=== PATIENT | female | born 1960 | race Caucasian/White ===

== ENCOUNTER 2024-01-24 11:54 | Inpatient (IN) | payer OTHER ==
[~2024-01-24] VITALS: Ht 160 cm; Wt 61.0 kg
[2024-01-24] MEDS ORDERED: Ondansetron 4 MG SoluTab SL ONE (12:15)
[2024-01-24 12:38] LABS: BASOPHILS ABSOLUTE AUTO 0.08 K/mm3 (0.00-0.23); BASOPHILS PERCENT AUTO 1 % (0-2); EOSINOPHILS ABSOLUTE AUTO 0.76 K/mm3 (0.00-0.68); EOSINOPHILS PERCENT AUTO 10 % (0-6); Hematocrit 42.1 % (33.0-51.0); Hemoglobin 13.5 g/dL (11.5-16.0); IMMATURE GRAN ABSOLUTE AUTO 0.03 K/mm3 (0.00-0.10); IMMATURE GRAN PERCENT AUTO 0 % (0-1); LYMPHOCYTES ABSOLUTE AUTO 1.64 K/mm3 (0.84-5.20); LYMPHOCYTES PERCENT AUTO 22 % (21-46); MONOCYTES ABSOLUTE AUTO 0.46 K/mm3 (0.16-1.47); MONOCYTES PERCENT AUTO 6 % (4-13); Mean Corpuscular HGB 29.2 pg (26.0-34.0); Mean Corpuscular HGB Conc 32.1 g/dL (31.5-36.5); Mean Corpuscular Volume 91 fL (80-100); Mean Platelet Volume 10.3 fL (9.1-12.4); NEUTROPHILS PERCENT AUTO 60 % (41-73); Platelet Count 222 K/mm3 (150-400); RDW Coefficient Variation 14.1 % (11.7-14.2); RDW Standard Deviation 47.1 fL (35.1-46.3); Red Blood Cell Count 4.62 M/mm3 (3.80-5.20); White Blood Cell Count 7.47 K/mm3 (4.00-11.30)
[2024-01-24 12:53] LABS: Albumin, Blood 3.3 g/dL (3.4-5.0); Albumin/Globulin Ratio 0.6 (0.8-1.8); Bilirubin, Total 0.7 mg/dL (0.1-1.0); Bun/Creatinine Ratio 25.4 (12.0-20.0); Calcium, Blood 9.4 mg/dL (8.5-10.1); Creatinine, Blood 0.98 mg/dL (0.40-1.00); Globulin, Blood 5.7 g/dL (2.2-4.0); Magnesium, Blood 1.6 mg/dL (1.6-2.4); Potassium, Blood 4.6 mmol/L (3.5-5.5)
[2024-01-24] MEDS ORDERED: FUROSEMIDE40 MG PO (12:54)
[2024-01-24] MEDS ORDERED: ANORO ELLIPTA1 EAC1 IH (12:55)
[2024-01-24] MEDS ORDERED: ALBU8HFA2 INH (12:55)
[2024-01-24] MEDS ORDERED: POTASSIUM99 M3 PO (12:55)
[2024-01-24] MEDS ORDERED: Pulmicort Fle180 MCG INH (12:56)
[2024-01-24] MEDS ORDERED: Aspirin 81 MG Chew PO ONE (13:00)
[2024-01-24 14:26] LABS: Anti-Xa UFH, PHA Monitoring <0.10 IU/mL; International Normalized Ratio 1.11; Prothrombin Time Results 11.8 Sec (9.7-11.5)
[2024-01-24] MEDS ORDERED: Dose Adjust by Pharmacy XX STA (14:28)
[2024-01-24] MEDS ORDERED: Heparin Sodium 5000 Units/ML 1ML MDV IV ONE (14:30)
[2024-01-24] MEDS ORDERED: Heparin Sodium,Porcine/0.5 NS 500 ML IV SCH (14:30)
[2024-01-24] MEDS ORDERED: FLU VACC TS2024-25(6MOS UP)/PF 45 MCG/0.5 ML SYRINGE IM SCH (15:00)
[2024-01-24] MEDS ORDERED: Atorvastatin 40 MG Tab PO SCH (16:00)
[2024-01-24] MEDS ORDERED: Lactated Ringer's 1,000 ML IV SCH (18:00)
[2024-01-24 18:01] VITALS: BP 108/57
--- NOTE | 2024-01-24 18:53 | NUR ---
NURSE NOTE PT ARRIVED FROM THE ED ON A GURNEY. PT WAS SLIDE OVER TO OUR BED WITH THE ASSISTANCE OF 4 STAFF MEMEBERS. PT A+O X4, ABLE TO ANSWER QUESTIONS AND MAKE NEEDS KNOWN. DURING MY ASSESMENT WAS ABLE TO DANGLE AT BEDSIDE, THEN WAS ASST. TO BSC W/ THE HELP OF TWO STAFF MEMBERS. PT ABLE TO VOID, AND HAVE BOWEL MOVEMENT. PT WAS PROVIDED WARM BLANKETS. PROMPTED ON HOW TO USE CALL LIGHT.
[2024-01-24 19:35] VITALS: BP 114/60
[2024-01-24] MEDS ORDERED: Albuterol HFA200 ACT/6.7 GM INH INH PRN (19:35)
[2024-01-24] MEDS ORDERED: Mometasone Furoate Inhaler 220 mcg 14 ACT INH SCH (19:50)
[2024-01-24] MEDS ORDERED: Ipratropium/Albuterol SulF 2.5-0.5MG/3 ML Amp INH SCH (19:50)
[2024-01-24] MEDS ORDERED: Gabapentin 400 MG Cap PO SCH (21:00)
[2024-01-24] MEDS ORDERED: PANTOPRAZOLE SO40 M2 PO (21:14)
[2024-01-24] MEDS ORDERED: MELO7.5 PO (21:15)
[2024-01-24] MEDS ORDERED: Desyrel150 MG PO (21:16)
[2024-01-24] MEDS ORDERED: PARO30 PO (21:17)
[2024-01-24] MEDS ORDERED: GABA800 PO (21:18)
[2024-01-24] MEDS ORDERED: GABA400 PO (21:18)
[2024-01-24] MEDS ORDERED: Crestor40 MG PO (21:19)
[2024-01-24] MEDS ORDERED: ASPI81CH PO (21:20)
[2024-01-24] MEDS ORDERED: PROMETHAZINE12.5 M1 PO (21:25)
[2024-01-24] MEDS ORDERED: Acetaminophen 325 MG TABLET PO PRN (22:05)
[2024-01-24] MEDS ORDERED: TraZODone HCl 100 MG Tab PO PRN (22:10)
--- NOTE | 2024-01-24 22:30 | NUR ---
ASSUMPTION OF CARE/ASSESSMENT: ASSUMED CARE OF PT AT 1900; BEDSIDE REPORT RECIEVED FROM LAURA CANAS. PT IN BED, A&O X 4, PLEASANT AND COOPERATIVE WITH CARE. PT ADMITTED WITH CHEST PAIN AND TO R/O HOCM VERSUS NSTEMI. PT HX OF PACEMAKER PLACED BY IN 06/2023; PT SR ON MONITOR WITH HR 80'S; WILL OCCAS. TACH UP TO 110-120'S AND PACEMAKER WILL KICK ON AND PT WILL RETURN TO 80'S. PT ALSO OBSERVED TACH[place] TO 110-120'S WHEN [place] [facility] [place] PT REPORTS SOB AND CHEST PRESSURE AT THIS TIME, VSS. TOLERATING PO INTAKE; INDEPENDENT AT BASELINE BUT REQUIRING MINIMAL ASSISTANCE WITH TRANSFERS/REPOSITIONING. SKIN OVERALL INTACT; FRAGILE, SCATTERED BRUSING DUE TO INFILTRATED PIVS. PG TO JOJO THAT IS INFUSING LR @ 125 MLS/HR AND HEPARIN @ 15 UN/HR. PT'S FAMILY TO BEDSIDE THIS EVENING AND UPDATED ON CURRENT PLAN OF CARE; ALL QUESTIONS ANSWERED AT THIS TIME. MED REC COMPLETED WITH PT'S DAUGHTER, JOSÉ MIGUEL. PT RESTING QUIETLY, BED LOWERED, CALL LIGHT IN REACH.
[2024-01-25] VITALS (14 sets, daily range): BP systolic 81–133; BP diastolic 54–69
[2024-01-25] MEDS ORDERED: Dose Adjust by Pharmacy XX STA ×2 (00:50→08:24)
--- NOTE | 2024-01-25 02:46 | NUR ---
PT UPDATE: PT DIAPHOETIC, AFEBRIE AND DENIES CHEST PAIN/PRESSURE AT THIS TIME. PT CONTINUES IN SR WITH RATE 70'S, BP STABLE. LR @ 125 MLS/HR, AND HEPARIN @ 17 UN/HR. WILL CONTINUE TO MONITOR CLOSELY.
[2024-01-25 03:53] LABS: BASOPHILS ABSOLUTE AUTO 0.06 K/mm3 (0.00-0.23); BASOPHILS PERCENT AUTO 1 % (0-2); EOSINOPHILS ABSOLUTE AUTO 0.98 K/mm3 (0.00-0.68); EOSINOPHILS PERCENT AUTO 14 % (0-6); Hematocrit 30.9 % (33.0-51.0); Hemoglobin 10.1 g/dL (11.5-16.0); IMMATURE GRAN ABSOLUTE AUTO 0.02 K/mm3 (0.00-0.10); IMMATURE GRAN PERCENT AUTO 0 % (0-1); LYMPHOCYTES ABSOLUTE AUTO 1.76 K/mm3 (0.84-5.20); LYMPHOCYTES PERCENT AUTO 25 % (21-46); MONOCYTES ABSOLUTE AUTO 0.51 K/mm3 (0.16-1.47); MONOCYTES PERCENT AUTO 7 % (4-13); Mean Corpuscular HGB 29.4 pg (26.0-34.0); Mean Corpuscular HGB Conc 32.7 g/dL (31.5-36.5); Mean Corpuscular Volume 90 fL (80-100); Mean Platelet Volume 11.2 fL (9.1-12.4); NEUTROPHILS ABSOLUTE AUTO 3.65 K/mm3 (1.96-9.15); NEUTROPHILS PERCENT AUTO 52 % (41-73); Platelet Count 164 K/mm3 (150-400); RDW Coefficient Variation 14.2 % (11.7-14.2); RDW Standard Deviation 46.1 fL (35.1-46.3); Red Blood Cell Count 3.44 M/mm3 (3.80-5.20); White Blood Cell Count 6.98 K/mm3 (4.00-11.30)
[2024-01-25 04:17] LABS: Albumin, Blood 2.5 g/dL (3.4-5.0); Albumin/Globulin Ratio 0.6 (0.8-1.8); Bilirubin, Total 0.4 mg/dL (0.1-1.0); Bun/Creatinine Ratio 27.3 (12.0-20.0); Calcium, Blood 8.2 mg/dL (8.5-10.1); Creatinine, Blood 1.28 mg/dL (0.40-1.00); Globulin, Blood 4.3 g/dL (2.2-4.0); Potassium, Blood 5.1 mmol/L (3.5-5.5); Total Protein, Blood 6.8 g/dL (6.4-8.2)
--- NOTE | 2024-01-25 05:51 | NUR ---
SHIFT SUMMARY: NO ACUTE CHANGES OVERNIGHT; VSS THROUGHOUT THE SHIFT. PT UP TO BSC WITH SBA FOR CORDS; GOOD URINE OUTPUT AND A SMALL BM. PG TO JOJO INFUSING HEPARIN @ 17 UNITS/HR AND LR @ 125 MLS/HR (LAST BAG THEN DONE). PG TO MELE THAT IS PATENT AND SALINE LOCKED. PT SLEPT TOWARDS THE END OF SHIFT QUIETLY. BED LOWERED, CALL LIGHT IN REACH.
[2024-01-25] MEDS ORDERED: Gabapentin 400 MG Cap PO SCH (08:00)
[2024-01-25] MEDS ORDERED: PARoxetine HCl 20 MG Tab PO SCH (09:00)
[2024-01-25] MEDS ORDERED: Aspirin 81 MG Chew PO SCH (09:00)
[2024-01-25] MEDS ORDERED: NS 1,000 ML IV SCH (09:05)
[2024-01-25] MEDS ORDERED: Metoprolol Succinate 50 MG TABCR PO SCH (10:00)
[2024-01-25] MEDS ORDERED: Pantoprazole Sodium 40 MG Tab PO SCH (12:00)
[2024-01-25] MEDS ORDERED: Promethazine HCl 25 MG Tab PO PRN (13:50)
--- NOTE | 2024-01-25 15:28 | NUR ---
UPDATE INSTRUCTOR NURSE NOTIFIED AT 1527 THAT PT HR HAS BEEN HAS BEEN SR IN THE 60'S WITH CONSISTENT PACER SPIKES. INSTRUCTOR NURSE ALSO NOTIFIED THAT PT'S BP'S HAVE BEEN SOFT AND PT REPORTED LIGHTHEADEDNESS AND NAUSEA, NAUSEA TREATED PER EMAR. INSTRUCTOR NURSE INSTRUCTED THIS R TO GIVE 500ML BOLUS OF SALINE AND INFORMED THIS RN THAT METOPROLOL DOSE WILL BE LOWERED.
[2024-01-25] MEDS ORDERED: NS 500 ML IV ONE (15:30)
--- NOTE | 2024-01-25 15:44 | NUR ---
ASSUMPTION OF CARE: ASSUMED CARE OF PT AROUND 0750. PT ALERT AND ORIETNED, SHE IS CALM, COOPERATIVE TO CARE. SKIN INTACT NO BREAKDOWN NOTED. SINUS RHYTHM 80'S WITH FREQUENT RUNS OF SVT. SBP SOFT IN THE 100'S, PT STATES NORMAL, DENIES CP/PRESSURE. SHE REPORTS NEUROPATHY OF THE LEFT HAND AND FOOT. L/S CLEAR T/O, O2 >92% ON RA, PRN BREATHING TREATMENTS. +BS, NO TENDERNESS/PAIN ON PALPATION. SHE REPORTS DIZZINESS WITH EXERTION, BUT IMPROVED FROM YESTERDAY. PROVIDER AT BEDSIDE THIS AM TO DISCUSS PLAN OF CARE WITH PT. HEPARIN DRIP D/C AT 0914. PT TO START METOPROLOL THS MORNING, AND ELIQUIS THIS EVENING. PLAN FOR ATLEAST ONE MORE NIGHT STAY. PT AGREEABLE TO PLAN. PTS DAUGHTERS QUESTIONS AND ANSWERED. WILL MONITOR PT.
[2024-01-25] MEDS ORDERED: Apixaban 5 MG Tab PO SCH (17:00)
--- NOTE | 2024-01-25 18:30 | NUR ---
SHIFT SUMMARY: PT ALERT AND ORIENTED. PT TO START METOPROLOL THIS AFTERNOON. AFTER FIRST DOSE PT HR DECREASED TO THE 60'S, SBP IN THE LOW 60'S-70'S, WITH PACER . SHE BECAME SYMPTOMATIC WITH SOB, NAUSEA, DIZZY, HYPOTENSION. PROVIDER NOTIFIED, 500 ML BOLUS OF NS GIVEN. SBP TO THE 90'S AFTER 500 ML BOLUS, IV MAINTANENCE FLUIDS RUNNING AT 125 ML/HR. ANTICIPATING DECREASE IN DOSE OF METOPROLOL FOR NEXT DOSE PER PROVIDER. HEPARIN DRIP D/C TODAY AND PT STARTED ON PO ELIQUIS. WILL CONTINUE TO MONITOR AND REPORT TO DRESS SHOE INSPECTOR NURSE.
[2024-01-26 02:55] VITALS: BP 103/50
[2024-01-26 03:31] LABS: BASOPHILS ABSOLUTE AUTO 0.05 K/mm3 (0.00-0.23); BASOPHILS PERCENT AUTO 1 % (0-2); EOSINOPHILS ABSOLUTE AUTO 0.98 K/mm3 (0.00-0.68); EOSINOPHILS PERCENT AUTO 13 % (0-6); Hematocrit 29.6 % (33.0-51.0); Hemoglobin 9.4 g/dL (11.5-16.0); IMMATURE GRAN ABSOLUTE AUTO 0.02 K/mm3 (0.00-0.10); IMMATURE GRAN PERCENT AUTO 0 % (0-1); LYMPHOCYTES ABSOLUTE AUTO 1.27 K/mm3 (0.84-5.20); LYMPHOCYTES PERCENT AUTO 17 % (21-46); MONOCYTES ABSOLUTE AUTO 0.43 K/mm3 (0.16-1.47); MONOCYTES PERCENT AUTO 6 % (4-13); Mean Corpuscular HGB 29.4 pg (26.0-34.0); Mean Corpuscular HGB Conc 31.8 g/dL (31.5-36.5); Mean Corpuscular Volume 93 fL (80-100); Mean Platelet Volume 10.5 fL (9.1-12.4); NEUTROPHILS ABSOLUTE AUTO 4.79 K/mm3 (1.96-9.15); NEUTROPHILS PERCENT AUTO 64 % (41-73); Platelet Count 162 K/mm3 (150-400); RDW Coefficient Variation 14.4 % (11.7-14.2); RDW Standard Deviation 48.4 fL (35.1-46.3); White Blood Cell Count 7.54 K/mm3 (4.00-11.30)
[2024-01-26 03:49] LABS: Albumin, Blood 2.3 g/dL (3.4-5.0); Albumin/Globulin Ratio 0.6 (0.8-1.8); Bilirubin, Total 0.3 mg/dL (0.1-1.0); Bun/Creatinine Ratio 22.5 (12.0-20.0); Calcium, Blood 8.1 mg/dL (8.5-10.1); Creatinine, Blood 1.02 mg/dL (0.40-1.00); Globulin, Blood 3.9 g/dL (2.2-4.0); Total Protein, Blood 6.2 g/dL (6.4-8.2)
--- NOTE | 2024-01-26 05:37 | NUR ---
SHIFT SUMMARY PT A&O X4, ABLE TO MAKE NEEDS KNOWN. VSS, AFEBRILE, SPO2 >92% RA, BP STABLE. NS INFUSING. PT FAMILY AT BEDSIDE THIS SHIFT, PROVIDED UPDATE ON PT. NAUSEA MEDICATED PER EMAR. PT SBA TO RESTROOM. SHE REPORTS POTTER, DENIES CP AT THIS TIME. DAUGHTER AT BEDSIDE EARLIER THIS SHIFT, SHE EXPRESSED SOME CONCERN REGARDING PT'S CONFUSION. SHE STATES PT IS ABLE TO BE REORIENTED AND HAS HISTORY OF COGNITIVE IMPAIRMENT. PT REMAINED A&O X3-4 THIS SHIFT. SHE IS RESTING QUIETLY IN BED, CALL LIGHT IN REACH, BREATHING EVEN AND UNLABORED.
[2024-01-26 07:44] VITALS: BP 109/63
[2024-01-26] MEDS ORDERED: Metoprolol Succinate 25 MG TABCR PO SCH (09:00)
--- NOTE | 2024-01-26 09:58 | NUR ---
Pt requested cardiac rehab. Dr. Arguelles notified.
[2024-01-26] MEDS ORDERED: METO25ER PO (11:22)
[2024-01-26] MEDS ORDERED: ELIQUIS5 M2 PO (11:22)
[2024-01-26 11:29] VITALS: BP 105/42
--- NOTE | 2024-01-26 12:17 | NUR ---
DISCHARGE UPDATE DISCHARGE PACKET GONE OVER WITH PT AND PT DAUGHTER AT 1140 BY FER CANAS. PT DISCHARGED AT 1210 VIA WHEELCHAIR AND ON RA. DISCHARGE PACKET IN BAG ALONG WITH PERSONAL BELONGINGS AND WITH PT DAUGHTER AT TIME OF DISCHARGE. PT ABLE TO TRANSFER TO AND FROM WHEELCHAIR ON HER OWN, TOLERATED WELL.
== END 2024-01-26 12:14 | disposition home health service (06) | DRG 641 ==
LOC: ER 11:54 → PCU 14:57
PROVIDERS: Emergency Medicine; Physician Assistant; ADMIT Internal Medicine
DX: E86.0 Dehydration (principal); I51.81 Takotsubo syndrome; N39.0 Urinary tract infection, site not specified; E86.1 Hypovolemia; R01.1 Cardiac murmur, unspecified; I48.0 Paroxysmal atrial fibrillation; R55 Syncope and collapse; J44.9 Chronic obstructive pulmonary disease, unspecified; K21.9 Gastro-esophageal reflux disease without esophagitis; E78.5 Hyperlipidemia, unspecified; F32.A Depression, unspecified; I49.5 Sick sinus syndrome; F41.9 Anxiety disorder, unspecified; E87.70 Fluid overload, unspecified; I35.2 Nonrheumatic aortic (valve) stenosis with insufficiency; I50.9 Heart failure, unspecified; D50.9 Iron deficiency anemia, unspecified; Z88.8 Allergy status to other drugs, medicaments and biological substances; Z95.0 Presence of cardiac pacemaker; Z98.84 Bariatric surgery status; Z87.891 Personal history of nicotine dependence; Z79.01 Long term (current) use of anticoagulants; Z79.899 Other long term (current) drug therapy
CPT/HCPCS: 36415; 71046; 71260; 80053; 83735; 83880; 84484; 85025; 85379; 85520; 85610; 85730; 93005; 93010; 93306; 94640; 94664; 94760; 97110; 97162; 97530; 99285-25; A9270; C1751; J1644; J7030; J7040; J7120; Q9967

== ENCOUNTER 2024-02-18 09:06 | Emergency (ER) | payer OTHER ==
[~2024-02-18] VITALS: Ht 160 cm; Wt 63.5 kg
[~2024-02-18 09:06] MED LIST: ALBU8HFA2 INH; ANORO ELLIPTA1 EAC1 IH; ASPI81CH PO; Crestor40 MG PO; Desyrel150 MG PO; ELIQUIS5 M2 PO; FUROSEMIDE40 MG PO; GABA400 PO; GABA800 PO; MELO7.5 PO; METO25ER PO; PANTOPRAZOLE SO40 M2 PO; PARO30 PO; POTASSIUM99 M3 PO; PROMETHAZINE12.5 M1 PO; Pulmicort Fle180 MCG INH
[2024-02-18 10:20] LABS: Influenza A, PCR NEGATIVE (NEGATIVE); Influenza B, PCR NEGATIVE (NEGATIVE); Resp Syncytial Virus, PCR NEGATIVE (NEGATIVE); SARS-Cov-2 (COVID-19) PCR, MMC NEGATIVE (NEGATIVE)
[2024-02-18 10:51] LABS: BASOPHILS ABSOLUTE AUTO 0.07 K/mm3 (0.00-0.23); BASOPHILS PERCENT AUTO 1 % (0-2); EOSINOPHILS ABSOLUTE AUTO 0.19 K/mm3 (0.00-0.68); EOSINOPHILS PERCENT AUTO 2 % (0-6); Hematocrit 37.7 % (33.0-51.0); Hemoglobin 11.9 g/dL (11.5-16.0); IMMATURE GRAN ABSOLUTE AUTO 0.03 K/mm3 (0.00-0.10); IMMATURE GRAN PERCENT AUTO 0 % (0-1); LYMPHOCYTES ABSOLUTE AUTO 0.75 K/mm3 (0.84-5.20); LYMPHOCYTES PERCENT AUTO 7 % (21-46); MONOCYTES PERCENT AUTO 4 % (4-13); Mean Corpuscular HGB Conc 31.6 g/dL (31.5-36.5); Mean Corpuscular Volume 95 fL (80-100); Mean Platelet Volume 11.4 fL (9.1-12.4); NEUTROPHILS ABSOLUTE AUTO 9.37 K/mm3 (1.96-9.15); NEUTROPHILS PERCENT AUTO 87 % (41-73); Platelet Count 87 K/mm3 (150-400); RDW Coefficient Variation 16.1 % (11.7-14.2); RDW Standard Deviation 56.4 fL (35.1-46.3); Red Blood Cell Count 3.97 M/mm3 (3.80-5.20); White Blood Cell Count 10.81 K/mm3 (4.00-11.30)
[2024-02-18 11:07] LABS: Albumin, Blood 3.3 g/dL (3.4-5.0); Albumin/Globulin Ratio 0.7 (0.8-1.8); Bilirubin, Total 0.7 mg/dL (0.1-1.0); Calcium, Blood 8.8 mg/dL (8.5-10.1); Creatinine, Blood 0.72 mg/dL (0.40-1.00); Globulin, Blood 4.6 g/dL (2.2-4.0); Magnesium, Blood 1.2 mg/dL (1.6-2.4); Total Protein, Blood 7.9 g/dL (6.4-8.2)
[2024-02-18] MEDS ORDERED: NS 1,000 ML IV SCH (11:35)
[2024-02-18] MEDS ORDERED: Ondansetron HCl 2 MG / ML 2ML Vial IV ONE ×2 (11:35→15:50)
[2024-02-18 12:53] LABS: U Amphetamine Screen Not Detected; U Barbituate Screen Not Detected; U Benzodiazapine Screen Not Detected; U Buprenorphine Screen Not Detected; U Cannabinoids Screen Not Detected; U Cocaine Screen Not Detected; U Methadone Screen Not Detected; U Methamphetamine Screen Not Detected; U Opiates Screen Not Detected; U Oxycodone Screen Not Detected; U Phencyclidine Screen Not Detected
[2024-02-18 14:29] LABS: Source, Urine Clean Catch
[2024-02-18 14:38] LABS: Appearance, Urine Clear (Clear); Bilirubin, Urine Neg (Neg); Blood, Urine 1+ (Neg); Color, Urine Yellow (P-Yellow); Glucose Qualitative, Urine Neg (Neg); Ketones, Urine Neg (Neg); Leukocyte Esterase, Urine 2+ (Neg); Nitrite, Urine Neg (Neg); Protein, Urine 2+ (Neg); Specific Gravity, Urine 1.015 (1.003-1.022); Urobilinogen, Urine NORM (Normal)
[2024-02-18 14:55] LABS: Bacteria Many /hpf; Squamous Epithelial Cells Mod /hpf (Few)
[2024-02-18] MEDS ORDERED: CefTRIAXone Sodium 1,000 MG in NS 100 ML IV ONE (15:50)
[2024-02-18] MEDS ORDERED: Magnesium Oxide 400 MG Tab PO ONE (15:50)
[2024-02-18] MEDS ORDERED: CEPH500 PO (16:18)
[2024-02-18] MEDS ORDERED: MAGNESIUM OXID500 MG PO (16:18)
== END 2024-02-18 17:38 | disposition home or self-care (01) ==
LOC: ER 09:06
PROVIDERS: Physician Assistant; Student in an Organized Health Care Education/Training Program
DX: N85.8 Other specified noninflammatory disorders of uterus (principal); N83.8 Other noninflammatory disorders of ovary, fallopian tube and broad ligament; R59.0 Localized enlarged lymph nodes; N39.0 Urinary tract infection, site not specified; E83.42 Hypomagnesemia; R74.01 Elevation of levels of liver transaminase levels; J44.9 Chronic obstructive pulmonary disease, unspecified; Z87.891 Personal history of nicotine dependence; Z79.899 Other long term (current) drug therapy; Z88.5 Allergy status to narcotic agent
CPT/HCPCS: 0241U; 70450; 71046; 74177; 76830; 76856; 80053; 80320; 81001; 83735; 84484; 85025; 86304; 87086; 93005; 93010; 96361; 96365-59; 96375; 96376; 99285-25; A9270; J0696; J2405; J7030; Q9967

== ENCOUNTER 2024-03-08 10:44 | Observation (INO) | payer OTHER ==
[~2024-03-08] VITALS: Ht 162.6 cm; Wt 66.3 kg
[~2024-03-08 10:44] MED LIST changes: +CEPH500 PO; +MAGNESIUM OXID500 MG PO
[2024-03-08 11:16] LABS: BASOPHILS ABSOLUTE AUTO 0.04 K/mm3 (0.00-0.23); BASOPHILS PERCENT AUTO 1 % (0-2); EOSINOPHILS ABSOLUTE AUTO 0.21 K/mm3 (0.00-0.68); EOSINOPHILS PERCENT AUTO 4 % (0-6); Hematocrit 33.9 % (33.0-51.0); Hemoglobin 10.7 g/dL (11.5-16.0); IMMATURE GRAN ABSOLUTE AUTO 0.01 K/mm3 (0.00-0.10); IMMATURE GRAN PERCENT AUTO 0 % (0-1); LYMPHOCYTES ABSOLUTE AUTO 1.44 K/mm3 (0.84-5.20); LYMPHOCYTES PERCENT AUTO 29 % (21-46); MONOCYTES ABSOLUTE AUTO 0.43 K/mm3 (0.16-1.47); MONOCYTES PERCENT AUTO 9 % (4-13); Mean Corpuscular HGB 30.4 pg (26.0-34.0); Mean Corpuscular HGB Conc 31.6 g/dL (31.5-36.5); Mean Corpuscular Volume 96 fL (80-100); NEUTROPHILS ABSOLUTE AUTO 2.78 K/mm3 (1.96-9.15); NEUTROPHILS PERCENT AUTO 57 % (41-73); RDW Coefficient Variation 16.5 % (11.7-14.2); RDW Standard Deviation 59.1 fL (35.1-46.3); Red Blood Cell Count 3.52 M/mm3 (3.80-5.20); White Blood Cell Count 4.91 K/mm3 (4.00-11.30)
[2024-03-08 11:31] LABS: Albumin, Blood 2.9 g/dL (3.4-5.0); Albumin/Globulin Ratio 0.7 (0.8-1.8); Bilirubin, Total 0.4 mg/dL (0.1-1.0); Calcium, Blood 8.4 mg/dL (8.5-10.1); Creatinine, Blood 0.89 mg/dL (0.40-1.00); Potassium, Blood 4.9 mmol/L (3.5-5.5); Total Protein, Blood 6.9 g/dL (6.4-8.2)
[2024-03-08] MEDS ORDERED: FLU VACC TS2024-25(6MOS UP)/PF 45 MCG/0.5 ML SYRINGE IM SCH (16:05)
[2024-03-08] MEDS ORDERED: Acetaminophen 500 MG Tab PO ONE (16:15)
[2024-03-08] MEDS ORDERED: SODBIC650 (17:40)
[2024-03-08] MEDS ORDERED: GABA400 PO (17:41)
[2024-03-08 18:39] VITALS: BP 133/64
[2024-03-08] MEDS ORDERED: SODBIC650 PO (19:05)
[2024-03-08] MEDS ORDERED: VITAMIN D5000 UNIT PO (19:07)
[2024-03-08] MEDS ORDERED: B-COMPLEX WITH1 EACH PO (19:07)
[2024-03-08 19:32] VITALS: BP 135/66
[2024-03-08] MEDS ORDERED: TraZODone HCl 50 MG Tab PO PRN (20:55)
[2024-03-08] MEDS ORDERED: Apixaban 5 MG Tab PO SCH (21:00)
[2024-03-08] MEDS ORDERED: Rosuvastatin Calcium 10 MG Tab PO SCH (21:00)
[2024-03-08] MEDS ORDERED: Gabapentin 300 MG Cap PO SCH (21:00)
[2024-03-08] MEDS ORDERED: Pantoprazole Sodium 40 MG Tab PO SCH (21:00)
[2024-03-09 02:37] VITALS: BP 120/68
--- NOTE | 2024-03-09 05:47 | NUR ---
QUICK PRINT OPERATOR SUMMARY PT PASSED BEDSIDE SWALLOW EVAL WITH NO ISSUES. SHE STATES SHE FEELS BETTER THAN WHEN SHE FIRST CAME IN. SHE IS STILL EXPERIENCING SOME L FACIAL/L LIP NUMBNESS, SLIGHT VISUAL DISTURBANCES WITH A L FIELD CUT AND IMBALANCE WHEN AMBULATING. GAVE AN NIHSS SCORE OF A 2. PT WILL BENEFIT FROM THERAPIES TODAY. SHE IS CURRENTLY REQUIRING A X1 ASSIST WITH FWW/GB TO AMBULATE DUE TO HER IMBALANCE ISSUES. VSS. NO ISSUES ON TELEMETRY-NSR WITH RARE PACED BEATS.
[2024-03-09 07:18] LABS: BASOPHILS ABSOLUTE AUTO 0.03 K/mm3 (0.00-0.23); BASOPHILS PERCENT AUTO 1 % (0-2); EOSINOPHILS ABSOLUTE AUTO 0.33 K/mm3 (0.00-0.68); EOSINOPHILS PERCENT AUTO 7 % (0-6); Hematocrit 31.9 % (33.0-51.0); Hemoglobin 10.2 g/dL (11.5-16.0); IMMATURE GRAN ABSOLUTE AUTO 0.01 K/mm3 (0.00-0.10); IMMATURE GRAN PERCENT AUTO 0 % (0-1); LYMPHOCYTES PERCENT AUTO 29 % (21-46); MONOCYTES ABSOLUTE AUTO 0.42 K/mm3 (0.16-1.47); MONOCYTES PERCENT AUTO 9 % (4-13); Mean Corpuscular HGB 30.4 pg (26.0-34.0); Mean Corpuscular Volume 95 fL (80-100); Mean Platelet Volume 11.8 fL (9.1-12.4); NEUTROPHILS ABSOLUTE AUTO 2.42 K/mm3 (1.96-9.15); NEUTROPHILS PERCENT AUTO 54 % (41-73); Platelet Count 71 K/mm3 (150-400); RDW Coefficient Variation 16.6 % (11.7-14.2); RDW Standard Deviation 57.7 fL (35.1-46.3); Red Blood Cell Count 3.36 M/mm3 (3.80-5.20); White Blood Cell Count 4.51 K/mm3 (4.00-11.30)
[2024-03-09 07:23] VITALS: BP 116/54
[2024-03-09 08:11] LABS: Bun/Creatinine Ratio 18.3 (12.0-20.0); Calcium, Blood 8.6 mg/dL (8.5-10.1); Creatinine, Blood 0.98 mg/dL (0.40-1.00); Potassium, Blood 4.8 mmol/L (3.5-5.5)
[2024-03-09] MEDS ORDERED: Gabapentin 400 MG Cap PO SCH (08:30)
[2024-03-09] MEDS ORDERED: PARoxetine HCl 20 MG Tab PO SCH (09:00)
[2024-03-09] MEDS ORDERED: Metoprolol Succinate 25 MG TABCR PO SCH (09:00)
[2024-03-09] MEDS ORDERED: Clopidogrel Bisulfate 75 MG Tab PO SCH (09:00)
[2024-03-09] MEDS ORDERED: Acetaminophen 325 MG TABLET PO PRN (09:40)
[2024-03-09 15:19] VITALS: BP 133/60
--- NOTE | 2024-03-09 18:30 | NUR ---
REPORT RECEIVED VERIFIED, A/O X4 VERY PLEASENT, PT STATING SHE IS FEELING SO MUCH BETTER TODAY AND HAS NO COMPLAINTS OTHER THAN HER VISION IS STILL AN ISSUE. SPEECH THERAPY WORKED WITH PT AND BECAUSE PT C/O HAVING FOOD NOT FULLY PASS MAKING HER A RISK FIR ASPIRATION PT WAS PLACED ON A MINCED AND MOIST DIET. PT LATER EXPLAINED TO ME THAT THE SWALLOWING SEEMED TO BE MORE OF A STRICTURE ISSUE AND HAD AN APPOINTMENT FOR AN ENDOSCOPY BUT CANCELLED HER APPOINTMENT. PT REFUSED THE MINCED AND MOIST DINNER HAVING DAUGHTER BRING IN SOME FOOD. PHYSICAL THERAPY WORKED WITH PT TODAY.
[2024-03-09 19:12] VITALS: BP 137/59
[2024-03-10 04:58] VITALS: BP 130/58
[2024-03-10 05:23] LABS: BASOPHILS ABSOLUTE AUTO 0.03 K/mm3 (0.00-0.23); BASOPHILS PERCENT AUTO 1 % (0-2); EOSINOPHILS ABSOLUTE AUTO 0.38 K/mm3 (0.00-0.68); EOSINOPHILS PERCENT AUTO 8 % (0-6); Hematocrit 29.8 % (33.0-51.0); Hemoglobin 9.3 g/dL (11.5-16.0); IMMATURE GRAN ABSOLUTE AUTO 0.01 K/mm3 (0.00-0.10); IMMATURE GRAN PERCENT AUTO 0 % (0-1); LYMPHOCYTES PERCENT AUTO 27 % (21-46); MONOCYTES ABSOLUTE AUTO 0.47 K/mm3 (0.16-1.47); MONOCYTES PERCENT AUTO 10 % (4-13); Mean Corpuscular HGB 30.4 pg (26.0-34.0); Mean Corpuscular HGB Conc 31.2 g/dL (31.5-36.5); Mean Corpuscular Volume 97 fL (80-100); Mean Platelet Volume 10.8 fL (9.1-12.4); NEUTROPHILS ABSOLUTE AUTO 2.59 K/mm3 (1.96-9.15); NEUTROPHILS PERCENT AUTO 54 % (41-73); Platelet Count 67 K/mm3 (150-400); RDW Coefficient Variation 16.4 % (11.7-14.2); RDW Standard Deviation 58.4 fL (35.1-46.3); Red Blood Cell Count 3.06 M/mm3 (3.80-5.20); White Blood Cell Count 4.78 K/mm3 (4.00-11.30)
[2024-03-10 05:40] LABS: Bun/Creatinine Ratio 19.3 (12.0-20.0); Calcium, Blood 8.5 mg/dL (8.5-10.1); Creatinine, Blood 0.93 mg/dL (0.40-1.00); Potassium, Blood 4.7 mmol/L (3.5-5.5)
[2024-03-10 07:53] VITALS: BP 115/73
[2024-03-10 15:28] VITALS: BP 121/54
--- NOTE | 2024-03-10 16:38 | NUR ---
PT STATES SHE FEELS MUCH BETTER WELL HER VISION, CALL LIGHT IS AT BEDSIDE AND PT HAS BEEN CALL, MAKING NEEDS MET. FAMILY AT BEDSIDE
[2024-03-10 19:09] VITALS: BP 130/54
[2024-03-11 02:49] VITALS: BP 121/48
[2024-03-11 05:07] LABS: BASOPHILS ABSOLUTE AUTO 0.03 K/mm3 (0.00-0.23); BASOPHILS PERCENT AUTO 1 % (0-2); EOSINOPHILS ABSOLUTE AUTO 0.41 K/mm3 (0.00-0.68); EOSINOPHILS PERCENT AUTO 8 % (0-6); Hematocrit 28.3 % (33.0-51.0); Hemoglobin 9.2 g/dL (11.5-16.0); IMMATURE GRAN ABSOLUTE AUTO 0.01 K/mm3 (0.00-0.10); IMMATURE GRAN PERCENT AUTO 0 % (0-1); LYMPHOCYTES ABSOLUTE AUTO 1.21 K/mm3 (0.84-5.20); LYMPHOCYTES PERCENT AUTO 23 % (21-46); MONOCYTES ABSOLUTE AUTO 0.62 K/mm3 (0.16-1.47); MONOCYTES PERCENT AUTO 12 % (4-13); Mean Corpuscular HGB 31.1 pg (26.0-34.0); Mean Corpuscular HGB Conc 32.5 g/dL (31.5-36.5); Mean Corpuscular Volume 96 fL (80-100); Mean Platelet Volume 11.4 fL (9.1-12.4); NEUTROPHILS ABSOLUTE AUTO 3.07 K/mm3 (1.96-9.15); NEUTROPHILS PERCENT AUTO 57 % (41-73); Platelet Count 75 K/mm3 (150-400); RDW Coefficient Variation 16.4 % (11.7-14.2); RDW Standard Deviation 57.5 fL (35.1-46.3); Red Blood Cell Count 2.96 M/mm3 (3.80-5.20); White Blood Cell Count 5.35 K/mm3 (4.00-11.30)
--- NOTE | 2024-03-11 05:45 | NUR ---
BIOFUELS PLANT OPERATIONS ENGINEER SUMMARY PT CONTINUES TO IMPROVE EVERY DAY SINCE HER STROKE. SHE STILL EXPERIENCING MINOR NUMBNESS TO THE L SIDE OF HER FACE/LIP, SLIGHT VISUAL DISTURBANCES WITH A L FIELD CUT AND MINOR IMBALANCE WHILE AMBULATING. HER NIHSS SCORE REMAINS A 2. PT IS CURRENTLY STILL REQUIRING STAND BY ASSIST TO THE BATHROOM BECAUSE OF HER IMBALANCE ISSUES. VSS. NSR ON TELE AND SOMETIMES A-PACED ON TELE.
[2024-03-11 05:46] LABS: Bun/Creatinine Ratio 21.7 (12.0-20.0); Calcium, Blood 8.4 mg/dL (8.5-10.1); Creatinine, Blood 0.88 mg/dL (0.40-1.00); Potassium, Blood 4.5 mmol/L (3.5-5.5)
[2024-03-11 07:31] VITALS: BP 112/49
[2024-03-11] MEDS ORDERED: CLOP75 PO (12:43)
--- NOTE | 2024-03-11 13:12 | NUR ---
PT DISCHARGED HOME VIA PRIVATE VEHICLE WITH DAUGHTER. ALL BELONGINGS SENT WITH PT, EDUCATION PROVIDED, AND FOLLOW UP APPOINTMENTS REVIEWED WITH PT AND DAUGHTER. DIAMOND MERCHANT BROUGHT PT TO CAR WITH A WHEELCHAIR.
== END 2024-03-11 13:07 | disposition home health service (06) ==
LOC: ER 10:44 → ERHOLD 10:45 → MEDS 18:26
PROVIDERS: Physician Assistant; ADMIT Internal Medicine
DX: I63.9 Cerebral infarction, unspecified (principal); J44.9 Chronic obstructive pulmonary disease, unspecified; K21.9 Gastro-esophageal reflux disease without esophagitis; I50.9 Heart failure, unspecified; E78.5 Hyperlipidemia, unspecified; F32.A Depression, unspecified; I42.2 Other hypertrophic cardiomyopathy; I48.0 Paroxysmal atrial fibrillation; Z79.899 Other long term (current) drug therapy; Z88.5 Allergy status to narcotic agent; Z87.891 Personal history of nicotine dependence; Z95.0 Presence of cardiac pacemaker; Z98.84 Bariatric surgery status
CPT/HCPCS: 36415; 70450; 70496; 70498; 74230; 80048; 80053; 83721; 85025; 92610; 92611; 93308; 93321; 97110-CQ; 97112; 97116; 97116-CQ; 97162; 97165; 99285-25; A9270; G0378; Q9967

== ENCOUNTER 2024-03-26 13:08 | Emergency (ER) | payer MEDICARE, OTHER ==
[~2024-03-26] VITALS: Ht 157.5 cm; Wt 62.1 kg
[~2024-03-26 13:08] MED LIST changes: +B-COMPLEX WITH1 EACH PO; +CLOP75 PO; +SODBIC650; +SODBIC650 PO; +VITAMIN D5000 UNIT PO
[2024-03-26 14:22] LABS: BASOPHILS ABSOLUTE AUTO 0.06 K/mm3 (0.00-0.23); BASOPHILS PERCENT AUTO 1 % (0-2); EOSINOPHILS ABSOLUTE AUTO 0.28 K/mm3 (0.00-0.68); EOSINOPHILS PERCENT AUTO 5 % (0-6); Hematocrit 34.2 % (33.0-51.0); IMMATURE GRAN ABSOLUTE AUTO 0.02 K/mm3 (0.00-0.10); IMMATURE GRAN PERCENT AUTO 0 % (0-1); LYMPHOCYTES ABSOLUTE AUTO 1.25 K/mm3 (0.84-5.20); LYMPHOCYTES PERCENT AUTO 22 % (21-46); MONOCYTES ABSOLUTE AUTO 0.36 K/mm3 (0.16-1.47); MONOCYTES PERCENT AUTO 6 % (4-13); Mean Corpuscular HGB Conc 32.2 g/dL (31.5-36.5); Mean Corpuscular Volume 96 fL (80-100); Mean Platelet Volume 11.4 fL (9.1-12.4); NEUTROPHILS ABSOLUTE AUTO 3.76 K/mm3 (1.96-9.15); NEUTROPHILS PERCENT AUTO 66 % (41-73); Platelet Count 131 K/mm3 (150-400); RDW Coefficient Variation 16.4 % (11.7-14.2); RDW Standard Deviation 58.4 fL (35.1-46.3); Red Blood Cell Count 3.55 M/mm3 (3.80-5.20); White Blood Cell Count 5.73 K/mm3 (4.00-11.30)
[2024-03-26 14:59] LABS: Albumin, Blood 3.3 g/dL (3.4-5.0); Albumin/Globulin Ratio 0.8 (0.8-1.8); Bilirubin, Total 0.6 mg/dL (0.1-1.0); Bun/Creatinine Ratio 16.8 (12.0-20.0); Calcium, Blood 8.9 mg/dL (8.5-10.1); Creatinine, Blood 0.83 mg/dL (0.40-1.00); Globulin, Blood 4.3 g/dL (2.2-4.0); Potassium, Blood 4.8 mmol/L (3.5-5.5); Total Protein, Blood 7.6 g/dL (6.4-8.2)
[2024-03-26 15:51] LABS: Source, Urine Clean Catch
[2024-03-26 15:58] LABS: Appearance, Urine Cloudy (Clear); Bilirubin, Urine Neg (Neg); Blood, Urine 5+ (Neg); Glucose Qualitative, Urine Neg (Neg); Ketones, Urine Neg (Neg); Leukocyte Esterase, Urine 3+ (Neg); Nitrite, Urine Neg (Neg); Protein, Urine 3+ (Neg); Specific Gravity, Urine 1.015 (1.003-1.022); Urobilinogen, Urine 1+ (Normal)
[2024-03-26 16:04] LABS: Color, Urine Red (P-Yellow)
[2024-03-26 16:05] LABS: Red Blood Cells, Urine TNTC /hpf (0-2)
[2024-03-26 16:06] LABS: Bacteria Mod /hpf; Squamous Epithelial Cells Few /hpf (Few)
[2024-03-26] MEDS ORDERED: Cephalexin Monohydrate 500 MG Cap PO ONE (17:40)
[2024-03-26] MEDS ORDERED: CEPH500 PO (17:44)
[2024-03-26] MEDS ORDERED: Acetaminophen 500 MG Tab PO ONE (17:45)
== END 2024-03-26 17:56 | disposition home or self-care (01) ==
LOC: ER 13:08
PROVIDERS: Student in an Organized Health Care Education/Training Program
DX: N85.8 Other specified noninflammatory disorders of uterus (principal); N93.9 Abnormal uterine and vaginal bleeding, unspecified; N39.0 Urinary tract infection, site not specified; J44.9 Chronic obstructive pulmonary disease, unspecified; K21.9 Gastro-esophageal reflux disease without esophagitis; E78.5 Hyperlipidemia, unspecified; Z87.891 Personal history of nicotine dependence; Z79.02 Long term (current) use of antithrombotics/antiplatelets; Z79.899 Other long term (current) drug therapy; Z88.5 Allergy status to narcotic agent
CPT/HCPCS: 74177; 80053; 81001; 85025; 87086; 93005; 93010; 99284-25; A9270; Q9967

== ENCOUNTER 2024-04-09 09:45 | Emergency (ER) | payer OTHER, MEDICARE ==
[~2024-04-09] VITALS: Ht 157.5 cm; Wt 63.5 kg
== END 2024-04-09 11:10 | disposition home or self-care (01) ==
LOC: ER 09:45
DX: M25.552 Pain in left hip (principal); E78.5 Hyperlipidemia, unspecified; J44.9 Chronic obstructive pulmonary disease, unspecified; K21.9 Gastro-esophageal reflux disease without esophagitis; I48.91 Unspecified atrial fibrillation; W01.0XXA Fall on same level from slipping, tripping and stumbling without subsequent striking against object, initial encounter; Z87.891 Personal history of nicotine dependence; Z79.02 Long term (current) use of antithrombotics/antiplatelets; Z79.899 Other long term (current) drug therapy; Z88.5 Allergy status to narcotic agent
CPT/HCPCS: 73502; 99283-25

== ENCOUNTER 2024-07-10 12:29 | Emergency (ER) | payer OTHER, MEDICARE ==
[~2024-07-10] VITALS: Ht 162.6 cm; Wt 61.2 kg
[2024-07-10 14:27] LABS: Albumin, Blood 3.3 g/dL (3.4-5.0); Albumin/Globulin Ratio 0.9 (0.8-1.8); Bilirubin, Total 0.9 mg/dL (0.1-1.0); Bun/Creatinine Ratio 20.9 (12.0-20.0); Calcium, Blood 8.4 mg/dL (8.5-10.1); Creatinine, Blood 0.91 mg/dL (0.40-1.00); Globulin, Blood 3.8 g/dL (2.2-4.0); Potassium, Blood 5.1 mmol/L (3.5-5.5); Total Protein, Blood 7.1 g/dL (6.4-8.2)
[2024-07-10 14:38] LABS: Influenza A, PCR NEGATIVE (NEGATIVE); Influenza B, PCR NEGATIVE (NEGATIVE); Resp Syncytial Virus, PCR NEGATIVE (NEGATIVE); SARS-Cov-2 (COVID-19) PCR, MMC NEGATIVE (NEGATIVE)
[2024-07-10 15:02] LABS: BASOPHILS ABSOLUTE AUTO 0.03 K/mm3 (0.00-0.23); BASOPHILS PERCENT AUTO 1 % (0-2); EOSINOPHILS ABSOLUTE AUTO 0.08 K/mm3 (0.00-0.68); EOSINOPHILS PERCENT AUTO 1 % (0-6); Hematocrit 33.5 % (33.0-51.0); Hemoglobin 11.2 g/dL (11.5-16.0); IMMATURE GRAN ABSOLUTE AUTO 0.04 K/mm3 (0.00-0.10); IMMATURE GRAN PERCENT AUTO 1 % (0-1); LYMPHOCYTES ABSOLUTE AUTO 1.58 K/mm3 (0.84-5.20); LYMPHOCYTES PERCENT AUTO 26 % (21-46); MONOCYTES ABSOLUTE AUTO 0.21 K/mm3 (0.16-1.47); MONOCYTES PERCENT AUTO 3 % (4-13); Mean Corpuscular HGB 30.9 pg (26.0-34.0); Mean Corpuscular HGB Conc 33.4 g/dL (31.5-36.5); Mean Corpuscular Volume 93 fL (80-100); Mean Platelet Volume 11.5 fL (9.1-12.4); NEUTROPHILS ABSOLUTE AUTO 4.22 K/mm3 (1.96-9.15); NEUTROPHILS PERCENT AUTO 69 % (41-73); RDW Coefficient Variation 13.4 % (11.7-14.2); RDW Standard Deviation 45.3 fL (35.1-46.3); Red Blood Cell Count 3.62 M/mm3 (3.80-5.20); White Blood Cell Count 6.16 K/mm3 (4.00-11.30)
[2024-07-10 15:13] LABS: International Normalized Ratio 1.38; Prothrombin Time Results 14.4 Sec (9.7-11.5)
[2024-07-10 15:24] LABS: Platelet Count 33 K/mm3 (150-400)
[2024-07-10] MEDS ORDERED: NS 1,000 ML IV SCH ×2 (15:50→19:55)
[2024-07-10] MEDS ORDERED: OxyCODONE HCL 5 MG TAB PO ONE (19:55)
[2024-07-10 20:27] LABS: Source, Urine Clean Catch
[2024-07-10 20:31] LABS: Appearance, Urine Cloudy (Clear); Bilirubin, Urine Neg (Neg); Blood, Urine 5+ (Neg); Color, Urine Red (P-Yellow); Glucose Qualitative, Urine Neg (Neg); Ketones, Urine 1+ (Neg); Leukocyte Esterase, Urine 3+ (Neg); Nitrite, Urine Pos (Neg); Protein, Urine 4+ (Neg); Specific Gravity, Urine 1.015 (1.003-1.022); Urobilinogen, Urine NORM (Normal)
[2024-07-10 20:39] LABS: Red Blood Cells, Urine TNTC /hpf (0-2); Renal Epithelial Rare /hpf (0-Rare); Squamous Epithelial Cells Few /hpf (Few)
[2024-07-10 20:42] LABS: Bacteria Mod /hpf
[2024-07-10] MEDS ORDERED: BACTRIM DS TAB1 EAC1 PO (20:49)
[2024-07-10] MEDS ORDERED: Trimethoprim/Sulfamethoxazole DS Tab PO ONE (20:50)
[2024-07-10 20:56] LABS: U Amphetamine Screen Not Detected; U Barbituate Screen Not Detected; U Benzodiazapine Screen Not Detected; U Buprenorphine Screen Not Detected; U Cannabinoids Screen Not Detected; U Cocaine Screen Not Detected; U Methadone Screen Not Detected; U Methamphetamine Screen Not Detected; U Opiates Screen Not Detected; U Oxycodone Screen DETECTED; U Phencyclidine Screen Not Detected
== END 2024-07-10 21:18 | disposition home or self-care (01) ==
LOC: ER 12:29
PROVIDERS: Student in an Organized Health Care Education/Training Program
DX: N39.0 Urinary tract infection, site not specified (principal); I50.9 Heart failure, unspecified; J44.9 Chronic obstructive pulmonary disease, unspecified; C56.9 Malignant neoplasm of unspecified ovary; C79.82 Secondary malignant neoplasm of genital organs; Z87.891 Personal history of nicotine dependence; Z88.5 Allergy status to narcotic agent; Z79.01 Long term (current) use of anticoagulants; Z79.899 Other long term (current) drug therapy
CPT/HCPCS: 0241U; 36415; 51798; 70450; 71046; 80053; 81001; 82140; 83880; 85025; 85610; 85730; 87086; 93005; 93010; 96360; 96361; 99285-25; A9270; C1751; J7030

== ENCOUNTER 2024-10-02 00:54 | Day surgery (SDC) | payer MEDICARE, OTHER ==
[~2024-10-02 00:54] MED LIST changes: +Aspir 8181 MG PO; +BACTRIM DS TAB1 EAC1 PO; +DECADRON4 M1 PO; +MAG-OXIDE MAGN200 MG PO; +MIRT15 PO; +OLAN5 PO; +OXYC10ER PO; +POTCHL20ER PO; +PROM25 PO
[2024-10-02 08:34] VITALS: BP 95/43
[2024-10-02 09:10] LABS: Hematocrit 29.1 % (33.0-51.0); Hemoglobin 9.4 g/dL (11.5-16.0); Mean Corpuscular HGB 33.8 pg (26.0-34.0); Mean Corpuscular HGB Conc 32.3 g/dL (31.5-36.5); Mean Corpuscular Volume 105 fL (80-100); Mean Platelet Volume 10.5 fL (9.1-12.4); Platelet Count 74 K/mm3 (150-400); RDW Standard Deviation 76.5 fL (35.1-46.3); Red Blood Cell Count 2.78 M/mm3 (3.80-5.20); White Blood Cell Count 4.24 K/mm3 (4.00-11.30)
[2024-10-02 09:30] LABS: Thyroid Stimulating Hormone 5.25 uIU/mL (0.360-4.800)
[2024-10-02 09:48] LABS: BASOPHILS PERCENT MAN 0 % (0-2); EOSINOPHILS ABSOLUTE MAN 0.04 K/mm3 (0.00-0.68); EOSINOPHILS PERCENT MAN 1 % (0-6); LYMPHOCYTES ABSOLUTE MAN 2.07 K/mm3 (0.84-5.20); LYMPHOCYTES PERCENT MAN 49 % (21-46); MONOCYTES ABSOLUTE MAN 0.29 K/mm3 (0.16-1.47); MONOCYTES PERCENT MAN 7 % (4-13); NEUTROPHILS ABSOLUTE MAN 1.82 K/mm3 (1.96-9.15); SEG NEUTROPHILS PERCENT MAN 43 % (41-73); TOTAL CELLS COUNTED 100
[2024-10-02 10:00] LABS: Albumin, Blood 2.1 g/dL (3.4-5.0); Albumin/Globulin Ratio 0.9 (0.8-1.8); Bilirubin, Total 0.7 mg/dL (0.1-1.0); Bun/Creatinine Ratio 22.2 (12.0-20.0); Calcium, Blood 5.9 mg/dL (8.5-10.1); Creatinine, Blood 0.63 mg/dL (0.40-1.00); Globulin, Blood 2.4 g/dL (2.2-4.0); Potassium, Blood 4.2 mmol/L (3.5-5.5); Total Protein, Blood 4.5 g/dL (6.4-8.2)
== END 2024-10-02 08:54 | disposition home or self-care (01) ==
LOC: ATC 00:54
DX: C54.1 Malignant neoplasm of endometrium (principal); J44.9 Chronic obstructive pulmonary disease, unspecified; E78.5 Hyperlipidemia, unspecified; Z79.82 Long term (current) use of aspirin; Z79.899 Other long term (current) drug therapy; Z88.5 Allergy status to narcotic agent; Z95.0 Presence of cardiac pacemaker
CPT/HCPCS: 36591; 80053; 83735; 84443; 85007; 85027; 85060; 86304; J1642

== ENCOUNTER 2024-10-28 18:25 | Emergency (ER) | payer MEDICARE, OTHER ==
[~2024-10-28] VITALS: Ht 160 cm; Wt 54.0 kg
[2024-10-28 19:36] LABS: BASOPHILS ABSOLUTE AUTO 0.01 K/mm3 (0.00-0.23); BASOPHILS PERCENT AUTO 0 % (0-2); EOSINOPHILS ABSOLUTE AUTO 0.02 K/mm3 (0.00-0.68); EOSINOPHILS PERCENT AUTO 1 % (0-6); Hematocrit 28.3 % (33.0-51.0); Hemoglobin 9.4 g/dL (11.5-16.0); IMMATURE GRAN ABSOLUTE AUTO 0.01 K/mm3 (0.00-0.10); IMMATURE GRAN PERCENT AUTO 0 % (0-1); LYMPHOCYTES ABSOLUTE AUTO 1.79 K/mm3 (0.84-5.20); LYMPHOCYTES PERCENT AUTO 54 % (21-46); MONOCYTES ABSOLUTE AUTO 0.27 K/mm3 (0.16-1.47); MONOCYTES PERCENT AUTO 8 % (4-13); Mean Corpuscular HGB 35.2 pg (26.0-34.0); Mean Corpuscular HGB Conc 33.2 g/dL (31.5-36.5); Mean Corpuscular Volume 106 fL (80-100); Mean Platelet Volume 11.2 fL (9.1-12.4); NEUTROPHILS ABSOLUTE AUTO 1.19 K/mm3 (1.96-9.15); NEUTROPHILS PERCENT AUTO 36 % (41-73); Platelet Count 66 K/mm3 (150-400); RDW Coefficient Variation 18.8 % (11.7-14.2); Red Blood Cell Count 2.67 M/mm3 (3.80-5.20); White Blood Cell Count 3.29 K/mm3 (4.00-11.30)
[2024-10-28 20:08] LABS: Albumin/Globulin Ratio 0.9 (0.8-1.8); Bilirubin, Total 0.5 mg/dL (0.1-1.0); Bun/Creatinine Ratio 23.1 (12.0-20.0); Calcium, Blood 8.3 mg/dL (8.5-10.1); Creatinine, Blood 0.74 mg/dL (0.40-1.00); Globulin, Blood 3.2 g/dL (2.2-4.0); Potassium, Blood 4.4 mmol/L (3.5-5.5); Total Protein, Blood 6.2 g/dL (6.4-8.2)
[2024-10-28 21:53] LABS: Source, Urine Peds U Bag
[2024-10-28 21:58] LABS: Bilirubin, Urine Neg (Neg); Blood, Urine 1+ (Neg); Glucose Qualitative, Urine Neg (Neg); Ketones, Urine Neg (Neg); Leukocyte Esterase, Urine 2+ (Neg); Nitrite, Urine Neg (Neg); Protein, Urine 1+ (Neg); Urobilinogen, Urine NORM (Normal)
[2024-10-28 22:21] LABS: Appearance, Urine Hazy (Clear); Color, Urine Yellow (P-Yellow)
[2024-10-28 22:31] LABS: Bacteria Few /hpf; Red Blood Cells, Urine 0-2 /hpf (0-2); Squamous Epithelial Cells Rare /hpf (Few); White Blood Cells, Urine 25-50 /hpf (0-5)
[2024-10-28] MEDS ORDERED: Macrobid 100 M100 MG PO ×2 (22:55→23:08)
[2024-10-28] MEDS ORDERED: Nitrofurantoin/Nitrofuran Mac 100 MG Cap PO ONE (22:55)
== END 2024-10-28 23:12 | disposition home or self-care (01) ==
LOC: ER 18:25
PROVIDERS: Student in an Organized Health Care Education/Training Program
DX: N39.0 Urinary tract infection, site not specified (principal); D61.818 Other pancytopenia; C55 Malignant neoplasm of uterus, part unspecified; C78.6 Secondary malignant neoplasm of retroperitoneum and peritoneum; J44.9 Chronic obstructive pulmonary disease, unspecified; K21.9 Gastro-esophageal reflux disease without esophagitis; I48.91 Unspecified atrial fibrillation; E78.5 Hyperlipidemia, unspecified; I50.9 Heart failure, unspecified; Z98.84 Bariatric surgery status; Z95.0 Presence of cardiac pacemaker; Z86.73 Personal history of transient ischemic attack (TIA), and cerebral infarction without residual deficits; Z88.5 Allergy status to narcotic agent; Z79.60 Long term (current) use of unspecified immunomodulators and immunosuppressants; Z79.82 Long term (current) use of aspirin; Z79.01 Long term (current) use of anticoagulants; Z79.899 Other long term (current) drug therapy
CPT/HCPCS: 80053; 81001; 85025; 87086; 99283; A9270

== ENCOUNTER 2024-10-31 00:03 | Observation (INO) | payer MEDICARE, OTHER ==
[~2024-10-31] VITALS: Ht 162.6 cm; Wt 57.4 kg
[~2024-10-31 00:03] MED LIST changes: +Macrobid 100 M100 MG PO
[2024-10-31] MEDS ORDERED: NS 1,000 ML IV ONE (00:18)
[2024-10-31] MEDS ORDERED: NS 1,000 ML IV SCH ×3 (00:25→04:20)
[2024-10-31 01:30] LABS: Hematocrit 25.6 % (33.0-51.0); Hemoglobin 8.9 g/dL (11.5-16.0); Mean Corpuscular HGB Conc 34.8 g/dL (31.5-36.5); NRBC ABSOLUTE 0.00 K/mm3 (0.00-0.02); NRBC Auto 0.0 /100 WBC (0.0-0.2); RDW Coefficient Variation 18.2 % (11.7-14.2); RDW Standard Deviation 68.1 fL (35.1-46.3)
[2024-10-31 01:31] LABS: Mean Corpuscular Volume 101 fL (80-100)
[2024-10-31 01:34] LABS: Platelet Count 43 K/mm3 (150-400)
[2024-10-31 01:46] LABS: Alanine Aminotransfer (ALT/SGP 33 U/L (12-78); Albumin, Blood 2.6 g/dL (3.4-5.0); Albumin/Globulin Ratio 1.0 (0.8-1.8); Anion Gap 8 mmol/L (3-11); Aspartate Aminotrans (AST/SGOT 37 U/L (12-37); Bilirubin, Total 0.8 mg/dL (0.1-1.0); Blood Urea Nitrogen 40 mg/dL (8-24); CO2, Blood 18 mmol/L (21-32); Calcium, Blood 7.6 mg/dL (8.5-10.1); Chloride, Blood 109 mmol/L (98-108); Creatinine, Blood 1.35 mg/dL (0.40-1.00); Ethanol (Alcohol), Blood, Med <3 mg/dL; Globulin, Blood 2.5 g/dL (2.2-4.0); Glucose, Blood 98 mg/dL (70-99); Potassium, Blood 4.5 mmol/L (3.5-5.5); Sodium, Blood 130 mmol/L (136-145); Total Protein, Blood 5.1 g/dL (6.4-8.2)
[2024-10-31 02:00] LABS: BAND PERCENT MAN 20 % (0-8); BASOPHILS ABSOLUTE MAN 0.00 K/mm3 (0.00-0.23); BASOPHILS PERCENT MAN 0 % (0-2); EOSINOPHILS ABSOLUTE MAN 0.02 K/mm3 (0.00-0.68); EOSINOPHILS PERCENT MAN 1 % (0-6); LYMPHOCYTES ABSOLUTE MAN 0.34 K/mm3 (0.84-5.20); LYMPHOCYTES PERCENT MAN 14 % (21-46); METAMYELOCYTE ABSOLUTE MAN 0.02 K/mm3 (0.00-0.00); METAMYELOCYTE PERCENT MAN 1 % (0-0); MONOCYTES ABSOLUTE MAN 0.04 K/mm3 (0.16-1.47); MONOCYTES PERCENT MAN 2 % (4-13); NEUTROPHILS ABSOLUTE MAN 2.02 K/mm3 (1.96-9.15); SEG NEUTROPHILS PERCENT MAN 62 % (41-73)
[2024-10-31 02:42] LABS: Source, Urine Clean Catch
[2024-10-31 02:47] LABS: Bilirubin, Urine Neg (Neg); Color, Urine Yellow (P-Yellow); Glucose Qualitative, Urine Neg (Neg); Ketones, Urine Neg (Neg); Leukocyte Esterase, Urine Neg (Neg); Protein, Urine 2+ (Neg); Specific Gravity, Urine 1.015 (1.003-1.022); Urobilinogen, Urine NORM (Normal)
[2024-10-31 02:56] LABS: Red Blood Cells, Urine 0-2 /hpf (0-2); White Blood Cells, Urine 0-2 /hpf (0-5)
[2024-10-31 03:19] LABS: U Amphetamine Screen Not Detected; U Barbituate Screen Not Detected; U Benzodiazapine Screen DETECTED; U Buprenorphine Screen Not Detected; U Cannabinoids Screen Not Detected; U Cocaine Screen Not Detected; U Methadone Screen Not Detected; U Methamphetamine Screen Not Detected; U Opiates Screen Not Detected; U Oxycodone Screen DETECTED; U Phencyclidine Screen Not Detected
[2024-10-31 04:38] LABS: Magnesium, Blood 1.5 mg/dL (1.6-2.4); Phosphorus, Blood 2.9 mg/dL (2.5-4.9)
[2024-10-31 04:56] LABS: pH Blood Venous 7.28 (7.34-7.37)
[2024-10-31] MEDS ORDERED: FentaNYL Citrate 50 MCG/ML 2 ML Injection IV PRN (12:40)
[2024-10-31 16:33] LABS: Hematocrit 24.2 % (33.0-51.0); Hemoglobin 8.0 g/dL (11.5-16.0); Mean Corpuscular HGB Conc 33.1 g/dL (31.5-36.5); NRBC ABSOLUTE 0.00 K/mm3 (0.00-0.02); NRBC Auto 0.0 /100 WBC (0.0-0.2); RDW Coefficient Variation 18.6 % (11.7-14.2); RDW Standard Deviation 73.4 fL (35.1-46.3)
[2024-10-31 16:43] LABS: Mean Corpuscular Volume 106 fL (80-100)
[2024-10-31 16:47] LABS: Platelet Count 30 K/mm3 (150-400)
[2024-10-31 17:29] LABS: Anion Gap 6.0 mmol/L (3-11); Blood Urea Nitrogen 33.0 mg/dL (8-24); CO2, Blood 16.0 mmol/L (21-32); Calcium, Blood 7.6 mg/dL (8.5-10.1); Chloride, Blood 113.0 mmol/L (98-108); Creatinine, Blood 1.05 mg/dL (0.40-1.00); Glucose, Blood 78.0 mg/dL (70-99); Potassium, Blood 4.1 mmol/L (3.5-5.5); Sodium, Blood 131.0 mmol/L (136-145)
[2024-10-31 17:38] LABS: BAND PERCENT MAN 4 % (0-8); BASOPHILS ABSOLUTE MAN 0.00 K/mm3 (0.00-0.23); BASOPHILS PERCENT MAN 0 % (0-2); EOSINOPHILS ABSOLUTE MAN 0.04 K/mm3 (0.00-0.68); EOSINOPHILS PERCENT MAN 2 % (0-6); LYMPHOCYTES ABSOLUTE MAN 0.15 K/mm3 (0.84-5.20); LYMPHOCYTES PERCENT MAN 7 % (21-46); MONOCYTES ABSOLUTE MAN 0.02 K/mm3 (0.16-1.47); MONOCYTES PERCENT MAN 1 % (4-13); NEUTROPHILS ABSOLUTE MAN 1.96 K/mm3 (1.96-9.15); SEG NEUTROPHILS PERCENT MAN 86 % (41-73)
[2024-10-31 20:41] VITALS: BP 86/51
[2024-10-31] MEDS ORDERED: NS 500 ML IV SCH (21:05)
[2024-10-31 22:21] VITALS: BP 102/45
[2024-10-31 22:48] VITALS: BP 94/49
[2024-10-31 23:01] VITALS: BP 97/49
[2024-10-31 23:45] VITALS: BP 130/57
[2024-11-01] VITALS (10 sets, daily range): BP systolic 92–139; BP diastolic 55–94
--- NOTE | 2024-11-01 05:38 | NUR ---
PT ADMITTED TO ROOM 351 AT SHIFT CHANGE. PT ARRIVED FROM ED WITH PUREWICK, WHICH WAS REMOVED DURING THE NIGHT. PT WITH PROLAPSED RECTUM AND PREFERS TO GO TO THE TOILET, "WHEN I GO TO THE BATHROOM, I START ONE THING AND THE OTHER HAPPENS". PT ASSISTED TO BATHROOM WITH 1 ASSIST AND FWW. PT DENIES DIZZINESS. 1 UNIT PLATELETS TRANSFUSED WITHOUT COMPLICATIONS. PER BLOOD BANK THE POLICY IS TO TRANSFUSE 1 UNIT AND RECHECK BLOOD COUNT BEFORE DECIDING ON ADDITIONAL UNITS. THIRD SHIFT LIEUTENANT PROVIDER NOTIFIED AND ORDER TO HOLD SECOND UNIT AND OBTAIN CBC WITH MORNING LABS. AWAITING RESULTS OF LAB DRAW. PT SLEPT INTERMITTENTLY DURING THE NIGHT. MEDICATED FOR LOW ABDOMINAL PAIN WITH OXYCODONE PER EMAR. BED IN LOWEST POSITION, CALL LIGHT WITHIN REACH, SIDERAILS UP X2.
[2024-11-01 05:56] LABS: BASOPHILS ABSOLUTE AUTO 0.00 K/mm3 (0.00-0.23); BASOPHILS PERCENT AUTO 0 % (0-2); Hematocrit 20.1 % (33.0-51.0); Hemoglobin 6.9 g/dL (11.5-16.0); Mean Corpuscular HGB Conc 34.3 g/dL (31.5-36.5); Mean Corpuscular Volume 103 fL (80-100); NRBC ABSOLUTE 0.00 K/mm3 (0.00-0.02); NRBC Auto 0.0 /100 WBC (0.0-0.2); RDW Coefficient Variation 18.4 % (11.7-14.2); RDW Standard Deviation 69.5 fL (35.1-46.3)
[2024-11-01 06:03] LABS: EOSINOPHILS ABSOLUTE AUTO 0.04 K/mm3 (0.00-0.68); EOSINOPHILS PERCENT AUTO 2 % (0-6); IMMATURE GRAN ABSOLUTE AUTO 0.01 K/mm3 (0.00-0.10); IMMATURE GRAN PERCENT AUTO 1 % (0-1); LYMPHOCYTES ABSOLUTE AUTO 0.65 K/mm3 (0.84-5.20); LYMPHOCYTES PERCENT AUTO 35 % (21-46); MONOCYTES ABSOLUTE AUTO 0.13 K/mm3 (0.16-1.47); MONOCYTES PERCENT AUTO 7 % (4-13); NEUTROPHILS ABSOLUTE AUTO 1.01 K/mm3 (1.96-9.15); NEUTROPHILS PERCENT AUTO 55 % (41-73)
[2024-11-01 06:04] LABS: Platelet Count 28 K/mm3 (150-400)
--- NOTE | 2024-11-01 06:22 | NUR ---
LAB RESULTS BACK WITH PLT 28 AND HG 6.9. INJECTION PRESS OPERATOR PROVIDER NOTIFIED. "HOLD OFF ON PLATELET TRANSFUSION FOR NOW". ORDER RECEIVED FOR 1 UNIT PRBC'S.
[2024-11-01 06:26] LABS: Alanine Aminotransfer (ALT/SGP 26.0 U/L (12-78); Albumin, Blood 2.2 g/dL (3.4-5.0); Albumin/Globulin Ratio 1.0 (0.8-1.8); Anion Gap 8.0 mmol/L (3-11); Aspartate Aminotrans (AST/SGOT 37.0 U/L (12-37); Bilirubin, Total 1.2 mg/dL (0.1-1.0); Blood Urea Nitrogen 35.0 mg/dL (8-24); CO2, Blood 16.0 mmol/L (21-32); Calcium, Blood 7.9 mg/dL (8.5-10.1); Chloride, Blood 115.0 mmol/L (98-108); Creatinine, Blood 1.1 mg/dL (0.40-1.00); Globulin, Blood 2.3 g/dL (2.2-4.0); Glucose, Blood 78.0 mg/dL (70-99); Potassium, Blood 4.0 mmol/L (3.5-5.5); Sodium, Blood 135.0 mmol/L (136-145); Total Protein, Blood 4.5 g/dL (6.4-8.2)
[2024-11-01 06:27] LABS: BASOPHILS ABSOLUTE MAN 0.03 K/mm3 (0.00-0.23); BASOPHILS PERCENT MAN 2 % (0-2); EOSINOPHILS ABSOLUTE MAN 0.03 K/mm3 (0.00-0.68); EOSINOPHILS PERCENT MAN 2 % (0-6); LYMPHOCYTES % ATYPICAL MANUAL 2 % (0-0); LYMPHOCYTES ABSOLUTE MAN 0.51 K/mm3 (0.84-5.20); LYMPHOCYTES PERCENT MAN 26 % (21-46); MONOCYTES ABSOLUTE MAN 0.07 K/mm3 (0.16-1.47); MONOCYTES PERCENT MAN 4 % (4-13); NEUTROPHILS ABSOLUTE MAN 1.17 K/mm3 (1.96-9.15); SEG NEUTROPHILS PERCENT MAN 64 % (41-73)
[2024-11-01] MEDS ORDERED: Cholecalciferol 1000 Unit Tablet (=25MCG) PO SCH (09:00)
[2024-11-01 12:34] LABS: Hematocrit 33.6 % (33.0-51.0); Hemoglobin 11.3 g/dL (11.5-16.0); Mean Corpuscular HGB Conc 33.6 g/dL (31.5-36.5); Mean Corpuscular Volume 101 fL (80-100); NRBC ABSOLUTE 0.00 K/mm3 (0.00-0.02); NRBC Auto 0.0 /100 WBC (0.0-0.2); RDW Coefficient Variation 19.3 % (11.7-14.2); RDW Standard Deviation 70.8 fL (35.1-46.3)
[2024-11-01 12:43] LABS: Platelet Count 33 K/mm3 (150-400)
[2024-11-01 12:52] LABS: BAND PERCENT MAN 1 % (0-8); BASOPHILS ABSOLUTE MAN 0.00 K/mm3 (0.00-0.23); BASOPHILS PERCENT MAN 0 % (0-2); EOSINOPHILS ABSOLUTE MAN 0.02 K/mm3 (0.00-0.68); EOSINOPHILS PERCENT MAN 1 % (0-6); LYMPHOCYTES ABSOLUTE MAN 0.72 K/mm3 (0.84-5.20); LYMPHOCYTES PERCENT MAN 26 % (21-46); MONOCYTES ABSOLUTE MAN 0.11 K/mm3 (0.16-1.47); MONOCYTES PERCENT MAN 4 % (4-13); NEUTROPHILS ABSOLUTE MAN 1.91 K/mm3 (1.96-9.15); SEG NEUTROPHILS PERCENT MAN 68 % (41-73)
--- NOTE | 2024-11-01 16:16 | NUR ---
SHIFT/DISCHARGE SUMMARY: PATIENT A/OX3, CONFUSED AND FORGETFUL AT TIMES, BUT EASILY REDIRECTABLE. PATIENT DENIES CP/PRESSURE, SOB, N/V AND DIZZINESS. PATIENT HAS SKIN RASH SCATTERED T/O. PER PATIENT IT'S NOT NEW, STARTED 2 DAYS AGO AND DOES NOT ITCH OR HURTS AT ALL." PATIENT DAUGHTER (LAUREL) CAME IN TODAY, THIS RN MENTION ABOUT THE SKIN RASH. PER LAUREL "SHE HAS SOME RASH, BUT IT SEEMS LIKE IT'S SPREAD OUT AND MORE THAN BEFORE SHE CAME INTO HOSPITAL." NOTIFIED DR. MORAES c THIS CONCERN. DR. MORAES DID ROUND ON PATIENT AND CHECK ON PATIENT RASH. PER DR. MORAES TO LET THE DAUGHTER KNOW IF IT STARTED ITCHING AT HOME TO TAKE OTC BENADRYL. PATIENT VERBALIZED UNDERSTANDING AND NO FURTHER QUESTIONS. PATIENT RECEIVED 1 UNIT PRBC AND 1 UNIT OF PLATELETS. PATIENT H/H, AND PLATELETS HAS IMPROVED. PATIENT REFUSED REPEAT PLATELETS LAB DRAWN, DR. MORAES IS AWARE. PATIENT HAS MOD APPETITE, CONTINENT OF BAB, USES BSC OR BATHROOM c SBA. PATIENT RECEIVED SCHEDULED MEDS PER EMAR. VITAL SIGNS REVIEWED. PIV DC'D BYABENA. PATIENT DISCHARGE HOME. DISCHARGE INSTRUCTIONS PACKET GIVEN TO PATIENT. PATIENT AND DAUGHTER EDUCATED ON ADMITITNG DX'S OF ACUTE METABOLIC ENCEPHALOPATHY, S/S, TX, REPEAT LAB WORK BEFORE CHEMO TX, SKIN RASH CARE, AND TO F/U c PCP. PATIENT AND DAUGHTER (LAUREL) VERBALIZED UNDERSTANDING AND NO FURTHER QUESTIONS. PATIENT HAS HAD NO NEW RX AND RESUME HOME MEDS PER ORDER. ALL PERSONAL BELONGINGS WERE SENT HOME c THE PATIENT. PATIENT LEFT THE ROOM AT 1413, TRANSPORTED VIA TO PATIENT ENTRANCE.
== END 2024-11-01 16:16 | disposition home or self-care (01) ==
LOC: ER 00:03 → MEDS 00:04 → ER 00:04 → ERHOLD 00:04 → MEDS 18:46 → ERHOLD 18:46 → ER 11-01 14:53 → MEDS 11-01 14:53
PROVIDERS: Emergency Medicine; Family Medicine; Student in an Organized Health Care Education/Training Program; ADMIT Family Medicine
DX: G92.8 Other toxic encephalopathy (principal); N17.9 Acute kidney failure, unspecified; J44.9 Chronic obstructive pulmonary disease, unspecified; F03.90 Unspecified dementia, unspecified severity, without behavioral disturbance, psychotic disturbance, mood disturbance, and anxiety; K21.9 Gastro-esophageal reflux disease without esophagitis; F10.11 Alcohol abuse, in remission; E78.5 Hyperlipidemia, unspecified; I95.9 Hypotension, unspecified; I48.0 Paroxysmal atrial fibrillation; D61.810 Antineoplastic chemotherapy induced pancytopenia; T45.1X5A Adverse effect of antineoplastic and immunosuppressive drugs, initial encounter; C55 Malignant neoplasm of uterus, part unspecified; C78.6 Secondary malignant neoplasm of retroperitoneum and peritoneum; G89.3 Neoplasm related pain (acute) (chronic); E86.0 Dehydration; I49.5 Sick sinus syndrome; I50.9 Heart failure, unspecified; Z86.73 Personal history of transient ischemic attack (TIA), and cerebral infarction without residual deficits; Z87.891 Personal history of nicotine dependence; Z79.01 Long term (current) use of anticoagulants; Z79.82 Long term (current) use of aspirin; Z79.899 Other long term (current) drug therapy; Z88.5 Allergy status to narcotic agent; Z95.0 Presence of cardiac pacemaker; Z98.84 Bariatric surgery status
CPT/HCPCS: 36415; 36430; 70450; 80048; 80053; 80320; 81001; 82803; 83605; 83735; 83930; 84100; 85025; 86850; 86900; 86901; 86923; 87040; 96361; 96374; 99285-25; A9270; G0378; J3010; J7030; J7040; P9016; P9035

== ENCOUNTER 2025-02-07 01:33 | Day surgery (SDC) | payer MEDICARE, OTHER ==
[2025-02-07 15:36] VITALS: BP 99/58
[2025-02-07 16:47] LABS: Hematocrit 31.6 % (33.0-51.0); Hemoglobin 9.9 g/dL (11.5-16.0); Mean Corpuscular HGB Conc 31.3 g/dL (31.5-36.5); Mean Corpuscular Volume 103 fL (80-100); NRBC ABSOLUTE 0.00 K/mm3 (0.00-0.02); NRBC Auto 0.0 /100 WBC (0.0-0.2); Platelet Count 247 K/mm3 (150-400); RDW Coefficient Variation 13.1 % (11.7-14.2); RDW Standard Deviation 49.1 fL (35.1-46.3)
[2025-02-07 17:11] LABS: BAND PERCENT MAN 3 % (0-8); BASOPHILS ABSOLUTE MAN 0.07 K/mm3 (0.00-0.23); BASOPHILS PERCENT MAN 1 % (0-2); EOSINOPHILS ABSOLUTE MAN 0.43 K/mm3 (0.00-0.68); EOSINOPHILS PERCENT MAN 6 % (0-6); LYMPHOCYTES ABSOLUTE MAN 1.66 K/mm3 (0.84-5.20); LYMPHOCYTES PERCENT MAN 23 % (21-46); MONOCYTES ABSOLUTE MAN 0.72 K/mm3 (0.16-1.47); MONOCYTES PERCENT MAN 10 % (4-13); NEUTROPHILS ABSOLUTE MAN 4.35 K/mm3 (1.96-9.15); SEG NEUTROPHILS PERCENT MAN 57 % (41-73)
[2025-02-07 17:17] LABS: Alanine Aminotransfer (ALT/SGP 48.0 U/L (12-78); Albumin, Blood 2.5 g/dL (3.4-5.0); Albumin/Globulin Ratio 0.6 (0.8-1.8); Anion Gap 11.0 mmol/L (3-11); Aspartate Aminotrans (AST/SGOT 46.0 U/L (12-37); Bilirubin, Total 0.3 mg/dL (0.1-1.0); Blood Urea Nitrogen 24.0 mg/dL (8-24); CO2, Blood 21.0 mmol/L (21-32); Calcium, Blood 8.5 mg/dL (8.5-10.1); Chloride, Blood 109.0 mmol/L (98-108); Creatinine, Blood 0.96 mg/dL (0.40-1.00); Globulin, Blood 4.1 g/dL (2.2-4.0); Glucose, Blood 80.0 mg/dL (70-99); Magnesium, Blood 1.8 mg/dL (1.6-2.4); Potassium, Blood 3.8 mmol/L (3.5-5.5); Sodium, Blood 137.0 mmol/L (136-145); Thyroid Stimulating Hormone 4.53 uIU/mL (0.360-4.800); Total Protein, Blood 6.6 g/dL (6.4-8.2)
== END 2025-02-07 15:48 | disposition home or self-care (01) ==
LOC: ATC 01:33
PROVIDERS: Obstetrics & Gynecology
DX: C54.1 Malignant neoplasm of endometrium (principal); E78.5 Hyperlipidemia, unspecified; K21.9 Gastro-esophageal reflux disease without esophagitis; Z87.891 Personal history of nicotine dependence; Z79.899 Other long term (current) drug therapy
CPT/HCPCS: 36591; 80053; 83735; 84443; 85007; 85027; 85060; 86304; J1642